=== PATIENT | male | born 1990 ===

== ENCOUNTER 2022-01-31 16:49 | Emergency (ER) | payer SELFPAY ==
[~2022-01-31] VITALS: Ht 177.8 cm; Wt 68.2 kg
[2022-01-31 16:58] VITALS: BP 162/80
== END 2022-01-31 18:00 | disposition left against medical advice (07) ==
LOC: EMS 16:49
DX: R07.9 Chest pain, unspecified (principal); F10.20 Alcohol dependence, uncomplicated; F12.90 Cannabis use, unspecified, uncomplicated; F17.210 Nicotine dependence, cigarettes, uncomplicated
CPT/HCPCS: 93005; 99283